=== PATIENT | female | born 1980 | race Caucasian/White ===

== ENCOUNTER 2022-10-28 20:27 | Emergency (ER) | payer OTHER, SELFPAY ==
[2022-10-28 20:31] VITALS: BP 122/79; PULSE 87; RESP 16; TEMP 36.8; O2SAT 99; BMI 33.9
--- NOTE | 2022-10-28 20:37 | DI.RAD.S_ITS ---
PROCEDURE: XR FOOT LT MIN 3V INDICATIONS: fall, hematoma to lateral L foot TECHNIQUE: 3 views of the foot were acquired. COMPARISON: None. FINDINGS: Bones: No fractures or dislocations. There is suggestion of a pes planus deformity. No suspicious bony lesions. Soft tissues: No suspicious soft tissue calcifications. IMPRESSION: 1. No fracture or dislocation. Dictated by: Ramses Woody M.D. on 10/28/2022 at 22:18 Approved by: Ramses Woody M.D. on 10/28/2022 at 22:19
--- NOTE | 2022-10-28 22:29 | ED.LOWEXIN ---
HPI - Extremity Injury (Lower) General Chief Complaint: Extremity Injury, Lower Stated Complaint: Foot inj Time Seen by Provider: 10/28/22 21:57 Source: patient and family Mode of arrival: Wheelchair History of Present Illness HPI Narrative: 42-year-old female daily smoker presents with her significant other and a chief complaint of left lateral foot pain since misjudged itching the last step while walking downstairs yesterday and stepping sideways on her foot. She now has pain in some bruising. Her pain is worse with ambulation with palpation but improves with rest. She denies any numbness, tingling or weakness. She denies any ankle, knee or hip pain. Related Data Allergies Allergy/AdvReac Type Severity Reaction Status Date / Time No Known Drug Allergies Allergy Verified 10/28/22 20:35 Review of Systems Review of Systems Narrative: GENERAL: Denies chills, fatigue, malaise, fever, sweats. HEENT: Denies sinus pain, ear pain, sore throat, difficulty swallowing, dizziness. RESPIRATORY: Denies dyspnea, cough, wheezing, hemoptysis, sputum. CARDIOVASCULAR: Denies chest pain, palpitations, orthopnea, edema, GASTROINTESTINAL: Denies nausea, vomiting, abdominal pain, diarrhea, constipation, melena. : Denies dysuria, frequency, incontinence, hematuria, urinary retention. MUSCULOSKELETAL: See HPI SKIN: Denies rash, skin lesions, or other NEUROLOGIC: Denies weakness, headache, numbness, change in speech, confusion, seizures, incoordination. PSYCHIATRIC: No concerning psychosocial issues. 12 point review of systems is negative except for those stated above Patient History Social History Smoking Status: Current every day smoker Smoking Status: Current every day smoker alcohol intake frequency: a few times a month Substance Use Type: does not use Exam Narrative Exam Narrative: GENERAL: [42] year old patient appears stated age. Well-developed patient, in mild distress. HEAD: Atraumatic. Normocephalic. EYES: Pupils equal round and reactive. Extraocular motions intact. No scleral icterus. No injection or drainage. ENT: Nose without bleeding, purulent drainage. Throat without erythema, tonsillar hypertrophy or exudate. Airway patent. NECK: Trachea midline. Non tender CARDIOVASCULAR: Regular rate and rhythm without murmurs, gallops, or rubs. RESPIRATORY: Clear to auscultation. Breath sounds equal bilaterally. No wheezes, rales, or rhonchi. GASTROINTESTINAL: Abdomen soft, non-tender, nondistended. EXTREMITIES: Moderately tender over lateral foot, no obvious deformity, closed, isolated and neurovascularly intact. There is some pain overlying the 5th metatarsal no obvious abnormality on imaging BACK: Nontender without deformity or crepitance. No flank tenderness. NEURO: AOx3. SKIN: No rash or erythema of visible areas Initial Vital Signs Initial Vital Signs: Vital Signs Temperature 98.3 F 10/28/22 20:31 Pulse Rate 87 10/28/22 20:31 Respiratory Rate 16 10/28/22 20:31 Blood Pressure 122/79 10/28/22 20:31 Pulse Oximetry 99 10/28/22 20:31 Oxygen Delivery Method Room Air 10/28/22 20:31 Procedures Orthopedic Splinting/Casting Injury #1: Lower Extremity Injury Location: foot Lower Extremity Immobilizer: post-op shoe Other Orthopedic Equipment: crutches Post splinting neuro exam: intact Post splinting vascular exam: intact Placed by: Nursing Course Orders Ordered: ED Orders 10/28/22 20:37 XR foot LT min 3V Stat Vital Signs Vital signs: Vital Signs - 8 hr 10/28/22 20:31 Temperature 98.3 F Pulse Rate 87 Respiratory Rate 16 Blood Pressure 122/79 Pulse Oximetry 99 Oxygen Delivery Method Room Air MDM - Extremity Injury (Lower) MDM Narrative Medical decision making narrative: [42] year old patient presents with left foot pain Multiple etiologies for patient's symptoms considered including, but not limited to: [Fracture versus dislocation versus contusion versus sprain] Prior Charts reviewed in our EMR Primary Historian: patient Imaging reviewed: No fracture or dislocation Patient's symptoms improved over duration of stay with above-stated therapies. Findings and discharge diagnosis discussed with patient/family followed by verbalization of understanding Return precautions discussed with patient/family whom verbalize understanding of diagnosis and plan Discharge Plan Departure Patient Disposition: Home Clinical Impression: Foot sprain Instructions: DI for Foot Sprain Activity Restrictions/Additional Instructions: *You have been diagnosed with [left foot sprain. As we discussed your history and physical exam are reassuring, x-ray showed no fracture or dislocation] *What to do: *Please continue to take your regular medications as directed. [ ] New medication prescriptions sent to your pharmacy: [ ] [ ] New medication written as a paper prescription [ x] No new medications given *Please follow up with your primary care provider in 2-3 days, call for an appointment. Let them know you were seen in the Emergency Department and that we ask that you be seen in follow up. We will electronically transmit a record of today's note if your PCP is in our system * weight-bearing as tolerated *Return to Emergency Department if you should have any new, worsening or concerning symptoms, such as [fever greater than 101 F, shaking chills, worsening pain, persistent vomiting or other bothersome symptoms] Referrals: ProviderAlvaro [Primary Care Provider] - Stand Alone Forms: Patient Portal/API
[2022-10-28 22:53] VITALS: BP 124/84; PULSE 82; RESP 16; O2SAT 100
== END 2022-10-28 22:54 | disposition home or self-care (01) ==
PROVIDERS: Emergency Provider Emergency Medicine
DX: S93.602A Unspecified sprain of left foot, initial encounter (principal); X50.1XXA Overexertion from prolonged static or awkward postures, initial encounter
CPT/HCPCS: 73630; 99282; 99283